=== PATIENT | male | born 1960 | race Caucasian/White ===

== ENCOUNTER → 2019-01-13 10:27 | Outpatient (CLI) | payer BC, SELFPAY ==
[2019-01-13 10:55] LABS: Absolute Lymphocyte Count 1.61 X10^3/uL (0.83-4.51); Absolute Neutrophil Count 4.3 X10^3/uL (2.0-7.7); Basophil# 0.04 X10^3/uL; Basophil% 0.6 % (0-1); Eosinophil# 0.44 X10^3/uL; Eosinophils% 6.1 % (0-5); Hematocrit 43.9 % (40-54); Hemoglobin 14.8 g/dL (13.0-16.5); Lymphocyte # 1.61 X10^3/ul (4.0); Lymphocyte % 22.5 % (19-41); Mean Corp Hgb Conc 33.7 g/dL (32-36); Mean Corpuscular Hgb 28.5 pg (27.0-32.0); Mean Corpuscular Volume 84.4 fL (80-94); Mean Platelet Vol. 8.7 fl (6.2-12.0); Monocyte# 0.71 X10^3/uL; Monocyte% 9.9 % (0-10); NRBC Flagged by Analyzer 0 % (0-5); Neutrophil # 4.34 X10^3/uL (2.7-7.7); Neutrophil % 60.5 % (47-70); Platelet Count 275 K/mm3 (150-450); RBC Distribution Width CV 12.1 % (11.6-14.6); RBC Distribution Width SD 36.7 fl (35.1-43.9); White Blood Count 7.2 K/mm3 (4.4-11.0)
[2019-01-13 11:29] LABS: ALB/GLOB Ratio 0.9 RATIO (0.9-2.4); AST(SGOT) 21 U/L (15-37); Alanine Aminotransfer ALT/SGPT 30 U/L (16-61); Albumin, Serum 3.5 g/dL (3.2-5.0); Alkaline Phosphatase 63 U/L (45-117); Anion Gap 9 (5-15); BUN 16 mg/dL (7-18); BUN/Creat Ratio 13.1 RATIO (10-20); Calcium,Total 8.8 mg/dL (8.5-10.1); Chloride 104 mmol/L (98-107); Cholesterol 151 mg/dL (200); Creatinine, Serum 1.22 mg/dL (0.70-1.30); EST Glomerular Filtration Rate 65 mL/min (>60); Est Glom Filt Rate - Afr Amer 79 mL/min (>60); Globulin 3.7 g/dL (2.2-4.2); Glucose 103 mg/dL (74-106); High Density Lipoprotein 51 mg/dL; PSA,Total - Annual Screen 0.68 ng/mL (0.00-4.00); Potassium 3.7 mmol/L (3.5-5.1); Protein, Total 7.2 g/dL (6.4-8.2); Sodium Level 141 mmol/L (136-145); Thyroid Stim Hormone (TSH) 0.78 uIU/mL (0.358-3.74); Triglycerides 73 mg/dL; Very Low Density Lipoprotein 15 mg/dL (5-40)
== END ==
PROVIDERS: Family Provider Family Medicine; PCP Family Medicine; Referring Provider Family Medicine; Visit Provider Family Medicine
DX: I10 Essential (primary) hypertension (principal); R73.01 Impaired fasting glucose; Z12.5 Encounter for screening for malignant neoplasm of prostate
CPT/HCPCS: 36415; 80053; 80061; 84153; 84443; 85025; G0103

== ENCOUNTER → 2020-01-30 18:27 | Outpatient (CLI) | payer BC, SELFPAY ==
[2020-01-30 13:22] VITALS: BMI 33.4
== END ==
PROVIDERS: PCP Family Medicine; Referring Provider Physician Assistant Surgical; Visit Provider Physician Assistant Surgical
DX: Z20.828 Contact with and (suspected) exposure to other viral communicable diseases (principal)
CPT/HCPCS: 87635; 94799; U0003

== ENCOUNTER → 2020-06-30 08:51 | Outpatient (CLI) | payer BC, SELFPAY ==
[2020-01-30 13:22] VITALS: BMI 33.4
[2020-06-30 09:07] LABS: Absolute Lymphocyte Count 1.71 X10^3/uL (0.83-4.51); Absolute Neutrophil Count 3.7 X10^3/uL (2.0-7.7); Basophil# 0.04 X10^3/uL; Basophil% 0.6 % (0-1); Eosinophil# 0.39 X10^3/uL; Hematocrit 45.3 % (40-54); Hemoglobin 15.3 g/dL (13.0-16.5); Lymphocyte # 1.71 X10^3/ul (4.0); Lymphocyte % 26.2 % (19-41); Mean Corp Hgb Conc 33.8 g/dL (32-36); Mean Corpuscular Hgb 27.9 pg (27.0-32.0); Mean Corpuscular Volume 82.5 fL (80-94); Mean Platelet Vol. 8.7 fl (6.2-12.0); Monocyte# 0.67 X10^3/uL; Monocyte% 10.3 % (0-10); NRBC Flagged by Analyzer 0 % (0-5); Neutrophil # 3.69 X10^3/uL (2.7-7.7); Neutrophil % 56.4 % (47-70); Platelet Count 294 K/mm3 (150-450); RBC Distribution Width CV 11.9 % (11.6-14.6); RBC Distribution Width SD 35.6 fl (35.1-43.9); Red Blood Count 5.49 M/mm3 (4.6-6.2); White Blood Count 6.5 K/mm3 (4.4-11.0)
[2020-06-30 09:27] LABS: Anion Gap 4 (5-15); BUN 16 mg/dL (7-18); BUN/Creat Ratio 12.2 RATIO (10-20); Calcium,Total 8.9 mg/dL (8.5-10.1); Chloride 102 mmol/L (98-107); Creatinine, Serum 1.31 mg/dL (0.70-1.30); EST Glomerular Filtration Rate 60 mL/min (>60); Est Glom Filt Rate - Afr Amer 72 mL/min (>60); Glucose 135 mg/dL (74-106); Potassium 3.6 mmol/L (3.5-5.1); Sodium Level 136 mmol/L (136-145)
== END ==
PROVIDERS: PCP Family Medicine; Referring Provider Registered Nurse; Visit Provider Registered Nurse
DX: Z01.818 Encounter for other preprocedural examination (principal)
CPT/HCPCS: 36415; 80048; 85025

== ENCOUNTER → 2022-03-20 | Outpatient (CLI) | payer BC, SELFPAY ==
[2022-03-20 12:19] LABS: Absolute Neutrophil Count 4.7 X10^3/uL (2.0-7.7); Basophil% 1.2 % (0-1); Eosinophil# 0.29 X10^3/uL; Eosinophils% 3.5 % (0-5); Hematocrit 46.9 % (40-54); Hemoglobin 15.6 g/dL (13.0-16.5); Lymphocyte % 28.7 % (19-41); Mean Corp Hgb Conc 33.3 g/dL (32-36); Mean Corpuscular Hgb 28.5 pg (27.0-32.0); Mean Corpuscular Volume 85.7 fL (80-94); Mean Platelet Vol. 9.8 fl (6.2-12.0); Monocyte# 0.77 X10^3/uL; Monocyte% 9.2 % (0-10); NRBC Flagged by Analyzer 0 % (0-5); Neutrophil # 4.72 X10^3/uL (2.7-7.7); Neutrophil % 56.3 % (47-70); Platelet Count 256 K/mm3 (150-450); RBC Distribution Width CV 12.8 % (11.6-14.6); RBC Distribution Width SD 40.1 fl (35.1-43.9); Red Blood Count 5.47 M/mm3 (4.6-6.2); White Blood Count 8.4 K/mm3 (4.4-11.0)
[2022-03-20 13:14] LABS: Hemoglobin A1c 6.3 % (3.8-5.6)
[2022-03-20 13:34] LABS: AST(SGOT) 13 U/L (15-37); Alanine Aminotransfer ALT/SGPT 25 U/L (16-61); Albumin, Serum 3.5 g/dL (3.2-5.0); Alkaline Phosphatase 63 U/L (45-117); Anion Gap 7 (5-15); BUN 20 mg/dL (7-18); BUN/Creat Ratio 17.2 RATIO (10-20); Chloride 106 mmol/L (98-107); Cholesterol 189 mg/dL (200); Creatinine, Serum 1.16 mg/dL (0.70-1.30); EST Glomerular Filtration Rate 68 mL/min (>60); Est Glom Filt Rate - Afr Amer 83 mL/min (>60); Globulin 3.5 g/dL (2.2-4.2); Glucose 124 mg/dL (74-106); High Density Lipoprotein 69 mg/dL; PSA,Total - Annual Screen 0.72 ng/mL (0.00-4.00); Potassium 3.6 mmol/L (3.5-5.1); Sodium Level 140 mmol/L (136-145); Triglycerides 103 mg/dL; Very Low Density Lipoprotein 21 mg/dL (5-40)
== END | disposition home or self-care (01) ==
PROVIDERS: PCP Family Medicine; Visit Provider Family Medicine
DX: Z00.00 Encounter for general adult medical examination without abnormal findings (principal); R73.01 Impaired fasting glucose; Z12.5 Encounter for screening for malignant neoplasm of prostate
CPT/HCPCS: 36415; 80053; 80061; 83036; 84153; 85025; G0103

== ENCOUNTER 2022-12-16 19:33 | Emergency (ER) | payer BC, SELFPAY ==
[2022-12-16 19:38] VITALS: BP 174/64; PULSE 79; RESP 16; TEMP 36.6; O2SAT 97; BMI 33.3
--- NOTE | 2022-12-16 20:13 | CT_ITS ---
STUDY: CT ABDOMEN AND PELVIS WITHOUT CONTRAST REASON FOR EXAM: Male, 62 years old. Kidney Stone RADIATION DOSAGE (If Supplied By Facility): CTDIvol = ( 12.23 ) mGy, DLP = ( 656.73 ) mGycm TECHNIQUE: Transaxial images were obtained from the dome of the diaphragm to the symphysis pubis without oral contrast, and without intravenous contrast. Sagittal and coronal images were reconstructed. Individualized dose optimization techniques were used for this CT. COMPARISON: None. FINDINGS: The visualized lung bases are unremarkable. The visualized portions of the heart are within normal limits. Normal liver. Thick-walled gallbladder without calcified stones or pericholecystic edema possibly physiologic. If concern for gallbladder disease ultrasound recommended Normal spleen. Normal pancreas. Normal bilateral adrenal glands. No evidence for renal obstruction or ureteral calculus. Tiny cyst in the upper pole of the right kidney. Normal visualized stomach. Normal small intestine. Mild diverticular disease of the colon without evidence for acute diverticulitis The appendix is visualized and appears normal. Minor atherosclerotic changes of the aorta without evidence for aneurysm. Normal inferior vena cava. Normal retroperitoneum. Nonspecific bladder distention. Normal abdominal wall. Normal osseous structures. CT/Abdomen/Pelvis without Cont IMPRESSION: Contracted thick walled gallbladder without calcified stones possibly physiologic however if concern for gallbladder disease ultrasound recommended. Minor diverticular changes of the colon without evidence for acute diverticulitis No evidence for renal obstruction or ureteral calculus. Normal appendix Electronically Signed: Ryan Rosenbaum MD at 21:03 EDT ,
--- NOTE | 2022-12-16 20:13 | EX.ED.DYSGE1 ---
HPI History of Present Illness Chief Complaint: Abd Pain Narrative Narrative: 62-year-old male presenting with acute onset right flank pain. He states he has a history of multiple kidney stones in the past. He has had to have lithotripsy and stents placed in the process. He states he has not had a kidney stone in a long time. Patient states he did get nauseous with the pain and was having trouble grinding at the position of comfort. Patient states the pain was sharp. Patient the pain is now gone. No fevers or chills. Patient otherwise healthy prior to events [facility] Medical History Back pain Difficulty balancing Hypertension Knee pain Neck pain Shoulder pain Home Medications benzonatate 100 mg capsule 100 mg PO Q8H PRN cough #30 caps 01/30/20 [Rx Last Taken Unknown] lisinopril 10 mg tablet 20 mg PO DAILY 01/30/20 [History Last Taken 12/16/22] Allergy/AdvReac Type Severity Reaction Status Date / Time potassium dichromate Allergy Mild Rash Uncoded 12/16/22 19:38 Family History (Updated 01/30/20 @ 13:25 by Chase Alfaro) Other Prostate cancer Social History (Updated 01/30/20 @ 14:32 by Luis Fernando STAUFFER, PA) Smoking Status: Former smoker alcohol intake: current alcohol intake frequency: a few times a week EXAM Physical Exam Const Vital Signs: 12/16/22 19:38 Temperature 97.8 F Temperature Source Temporal Pulse Rate 79 Respiratory Rate 16 Blood Pressure 174/64 H Blood Pressure Mean 100 Pulse Ox 97 Oxygen Delivery Method Room Air Positive well nourished General Appearance ED: NAD HEENT Reports moist mucous membranes and dry mucous membranes Mouth ED: Yes dry mucous membranes Mouth: dry mucous membranes Eyes PERRL and EOMs intact bilaterally Chest Wall inspection of chest normal Resp normal respiratory effort and clear to auscultation bilaterally Cardio regular rate and regular rhythm GI normal to inspection, nondistended, normoactive bowel sounds Back/Spine no CVA tenderness Neuro oriented x3 and CN's II-XII intact bilaterally Sensorium / Orientation: alert Psych mental status grossly normal MDM MDM MDM Narrative Medical decision making narrative: 62-year-old male with right flank pain. Onset was prior to arrival. It was acute in nature and felt sharp and stabbing. He states it was somewhat similar to kidney stone pain. Patient does have history of kidney stones. Differential includes kidney stone, UTI, pyelonephritis, acute cholecystitis, colitis, gastritis, constipation dehydration, electrode abnormalities. CBC to assess white blood cell count, hemoglobin, platelets, differential. CMP to assess renal function, liver function, glucose, electrolytes, anion gap. Lipase to assess for pancreatitis. Urinalysis to assess for UTI and occult blood. Patient was offered analgesia but declines but he is currently pain-free. Is not any CVA tenderness he does have abdominal pain currently. CBC and CMP unremarkable. Lipase negative. Urinalysis negative for obtain a CT of the ab pelvis without contrast which does not show any acute findings other than a contracted gallbladder. Patient does not have any pain on reevaluation. He states he feels fine. He does recall he ate a cheeseburger about 30 minutes before the pain started. Given that his liver function and lipase are normal and he is pain-free I recommended low-fat diet follow-up with general surgery. He was amenable to this. I did offer right upper quadrant ultrasound however the patient declines. Return precaution discussed. Impression: 1. Right flank pain Lab Data Labs: Laboratory Results - last 24 hr 12/16/22 12/16/22 19:40 20:56 WBC 7.7 RBC 5.20 Hgb 14.8 Hct 43.0 MCV 82.7 MCH 28.5 MCHC 34.4 RDW Std Deviation 38.1 RDW Coeff of Fredrick 12.6 Plt Count 253 MPV 9.6 Immature Gran % (Auto) 0.400 Neut % (Auto) 53.5 Lymph % (Auto) 29.5 Addison % (Auto) 8.8 Eos % (Auto) 6.8 H Baso % (Auto) 1.0 Absolute Neuts (auto) 4.1 Absolute Lymphs (auto) 2.27 Nucleated RBC % 0 Sodium 139 Potassium 3.6 Chloride 107 Carbon Dioxide 27.0 Anion Gap 5 BUN 18 Creatinine 1.23 Estim Creat Clear Calc 61.79 Est GFR (MDRD) Af Amer 77 Est GFR (MDRD) Non-Af 64 BUN/Creatinine Ratio 14.6 Glucose 132 H Calcium 9.3 Total Bilirubin 0.40 Direct Bilirubin 0.13 AST 25 ALT 29 Alkaline Phosphatase 57 Total Protein 7.4 Albumin 3.7 Globulin 3.7 Lipase 45 Urine Color Yellow Urine Clarity Clear Urine pH 6.0 Ur Specific [place] 1.015 Urine Protein Negative Urine Glucose (UA) Normal Urine Ketones Negative Urine Occult Blood Negative Urine Nitrite Negative Urine Bilirubin Negative Urine Urobilinogen Normal Ur Leukocyte Esterase Negative Urine RBC 0 SEEN Urine WBC 0 SEEN Ur Squamous Epith Cells 0-5 SEEN Urine Bacteria 0 SEEN Urine Mucus 0 SEEN Radiography Diagnostic Testing: Clinical Impression(s) from Imaging Studies Abdomen/Pelvis CT 12/16/22 20:13 IMPRESSION: Contracted thick walled gallbladder without calcified stones possibly physiologic however if concern for gallbladder disease ultrasound recommended. Minor diverticular changes of the colon without evidence for acute diverticulitis No evidence for renal obstruction or ureteral calculus. Normal appendix Electronically Signed: Ryan Rosenbaum MD at 21:03 EDT Reading Location ID and State: [facility] / [place] , Service support , Discharge Plan Triage Chief Complaint: Abd Pain ED Provider: Michele Jennings Dx/Rx/DC Orders Instructions: ED Flank Pain, Uncertain Cause Prescriptions: No Action lisinopril 10 mg tablet 20 mg PO DAILY benzonatate 100 mg capsule 100 mg PO Q8H PRN (Reason: cough) Qty: 30 0RF Primary Care Provider: Care Physician,No Primary Referrals: Prashant Shafer MD [Med Staff - Active Staff] - 3-5 Days Lucien Strickland MD [Non-Staff] - Disposition Disposition: Home, Self Care
[2022-12-16 20:36] LABS: Absolute Lymphocyte Count 2.27 X10^3/uL (0.83-4.51); Absolute Neutrophil Count 4.1 X10^3/uL (2.0-7.7); Basophil# 0.08 X10^3/uL; Eosinophil# 0.52 X10^3/uL; Eosinophils% 6.8 % (0-5); Hemoglobin 14.8 g/dL (13.0-16.5); Lymphocyte # 2.27 X10^3/ul (0.83-4.51); Lymphocyte % 29.5 % (19-41); Mean Corp Hgb Conc 34.4 g/dL (32-36); Mean Corpuscular Hgb 28.5 pg (27.0-32.0); Mean Corpuscular Volume 82.7 fL (80-94); Mean Platelet Vol. 9.6 fl (6.2-12.0); Monocyte# 0.68 X10^3/uL; Monocyte% 8.8 % (0-10); NRBC Flagged by Analyzer 0 % (0-5); Neutrophil # 4.11 X10^3/uL (2.7-7.7); Neutrophil % 53.5 % (47-70); Platelet Count 253 K/mm3 (150-450); RBC Distribution Width CV 12.6 % (11.6-14.6); RBC Distribution Width SD 38.1 fl (35.1-43.9); White Blood Count 7.7 K/mm3 (4.4-11.0)
[2022-12-16 20:53] LABS: Anion Gap 5 (5-15); BUN 18 mg/dL (7-18); BUN/Creat Ratio 14.6 RATIO (10-20); Calcium,Total 9.3 mg/dL (8.5-10.1); Chloride 107 mmol/L (98-107); Creatinine, Serum 1.23 mg/dL (0.70-1.30); EST Glomerular Filtration Rate 64 mL/min (>60); Est Glom Filt Rate - Afr Amer 77 mL/min (>60); Estimated Creatinine Clearance 61.79 ml/min; Glucose 132 mg/dL (74-106); Potassium 3.6 mmol/L (3.5-5.1); Sodium Level 139 mmol/L (136-145)
[2022-12-16 21:01] LABS: Bacteria 0 SEEN /hpf (None Seen); Mucous, Urine 0 SEEN /hpf (<or=2+); Red Blood Cells-Urine 0 SEEN /hpf (0-5); White Blood Cells 0 SEEN /hpf (0-5)
[2022-12-16 21:03] LABS: Color, Urine Yellow (Yellow); Glucose, Dipstick Normal (Normal); Ketone-Dipstick Negative (Negative); Leukocyte Esterase-Dipstick Negative /ul (Negative); Nitrite-Dipstick Negative (Negative); Occult Blood-Urine Negative /ul (Negative); Protein-Dipstick Negative (Negative); Specific Gravity, Urine 1.015 (1.002-1.030); Urine Bilirubin Dipstick Negative (Negative); Urine Clarity Clear (Clear); Urine Urobilinogen Normal (Normal)
[2022-12-16 21:11] LABS: Squamous Epithelial Cells - UA 0-5 SEEN /hpf (0-5)
[2022-12-16 21:32] LABS: AST(SGOT) 25 U/L (15-37); Alanine Aminotransfer ALT/SGPT 29 U/L (16-61); Albumin, Serum 3.7 g/dL (3.2-5.0); Alkaline Phosphatase 57 U/L (45-117); Bilirubin, Direct 0.13 mg/dL (0.00-0.30); Globulin 3.7 g/dL (2.2-4.2); Lipase 45 U/L (13-75); Protein, Total 7.4 g/dL (6.4-8.2)
[2022-12-16 23:07] VITALS: BP 155/71; PULSE 73; RESP 16; O2SAT 97
== END 2022-12-16 23:08 | disposition home or self-care (01) ==
PROVIDERS: Emergency Provider Student in an Organized Health Care Education/Training Program; Visit Provider Student in an Organized Health Care Education/Training Program
DX: R10.9 Unspecified abdominal pain (principal); I10 Essential (primary) hypertension; Z79.899 Other long term (current) drug therapy; Z87.891 Personal history of nicotine dependence
CPT/HCPCS: 74176; 80048; 80076; 81001; 83690; 85025; 99285; A4216

== ENCOUNTER → 2025-03-25 | Outpatient (CLI) | payer BC, SELFPAY ==
[2025-03-25 10:46] LABS: Hematocrit 43.3 % (40-54); Hemoglobin 14.7 g/dL (13.0-16.5); Mean Corp Hgb Conc 33.9 g/dL (32-36); Mean Corpuscular Volume 80.6 fL (80-94); Mean Platelet Vol. 9.3 fl (6.2-12.0); Platelet Count 241 K/mm3 (150-450); RBC Distribution Width CV 12.5 % (11.6-14.6); RBC Distribution Width SD 35.9 fl (35.1-43.9); Red Blood Count 5.37 M/mm3 (4.6-6.2); White Blood Count 6.1 K/mm3 (4.4-11.0)
[2025-03-25 12:10] LABS: AST(SGOT) 27 U/L (<=37); Alanine Aminotransfer ALT/SGPT 17 U/L (<=46); Albumin, Serum 4.0 g/dL (3.4-4.8); Alkaline Phosphatase 65 U/L (40-129); Anion Gap 9 (5-15); BUN 15 mg/dL (4-19); BUN/Creat Ratio 14.4 RATIO (10-20); Calcium,Total 9.1 mg/dL (7.6-11.0); Carbon Dioxide 25.9 mmol/L (21.0-32.0); Chloride 104 mmol/L (98-108); Cholesterol 174 mg/dL (<=200); Globulin 2.9 g/dL (2.2-4.2); Glucose 122 mg/dL (70-99); Low Density Lipoprotein Calc. 105 mg/dL; PSA,Total - Annual Screen 0.51 ng/mL (0.02-4.00); Potassium 3.8 mmol/L (3.3-5.1); Triglycerides 86 mg/dL; Very Low Density Lipoprotein 17 mg/dL (5-40); cholesterol:hdl ratio screen 3.39
== END | disposition home or self-care (01) ==
PROVIDERS: PCP Nurse Practitioner Family; Referring Provider Nurse Practitioner Family; Visit Provider Nurse Practitioner Family
DX: R73.01 Impaired fasting glucose (principal); E78.5 Hyperlipidemia, unspecified; I10 Essential (primary) hypertension; Z12.5 Encounter for screening for malignant neoplasm of prostate
CPT/HCPCS: 36415; 80053; 80061; 83036; 84153; 85027; G0103